=== PATIENT | male | born 1995 | race African-American/Black ===

== ENCOUNTER 2024-03-01 11:13 | Emergency (ER) | payer OTHER ==
[~2024-03-01] VITALS: Ht 190.5 cm; Wt 103.2 kg
[2024-03-01 11:20] VITALS: TEMP 97.9
[2024-03-01 11:21] VITALS: BP 139/61; PULSE 92; RESP 16; O2SAT 99
[2024-03-01] MEDS ORDERED: LIDOCAINE 1% HCL (LOCAL ANESTH.) INJ 20ML MDV ID ONE (12:15)
[2024-03-01] MEDS: cefTRIAXone SOD 1,000 MG VL IM ONE (12:44)
[2024-03-01] MEDS: DexAMETHasone SOD PHOS 10MG/1ML VIAL INJ IM ONE (12:44)
[2024-03-01] MEDS ORDERED: AMOX500T3 PO (12:58)
== END 2024-03-01 12:59 | disposition home or self-care (01) ==
LOC: ER 11:13
DX: K04.7 Periapical abscess without sinus (principal); Z79.2 Long term (current) use of antibiotics
CPT/HCPCS: 96372; 99284; J0696; J1100